=== PATIENT | male | born 1995 | race Caucasian/White ===

== ENCOUNTER 2019-10-02 15:37 | Emergency (ER) | payer BC ==
[2019-10-02] MEDS ORDERED: Amoxicillin/Potassium Clav 875 MG TAB ONE (15:58)
[2019-10-02] MEDS ORDERED: Lidocaine 2% w/ Epi 1:200K 10 ML VIAL ONE (15:58)
[2019-10-02] MEDS ORDERED: Adacel (T-DAP) 0.5 ML SYRINGE ONE (15:58)
[2019-10-02] MEDS ORDERED: Bacitracin 1 PK ONE (17:15)
--- NOTE | 2019-10-03 07:50 | RAD ---
RIGHT FOOT 3 VIEWS: Date: 10/02/2019 On the oblique view only, there was a faint linear density seen between the proximal first and second metatarsals. There is a possibility that this is an opaque foreign body in the soft tissues. I do no t see it with assurance on the lateral view of the foot. Some bony spurring is suggested in some of t he tarsometatarsal joints, perhaps from a prior injury. No fractures seen. IMPRESSION: Equivocal foreign body on one view only. Correlate this location with the site of laceration. CODE T. POS: HOME
== END 2019-10-02 17:15 | disposition home or self-care (01) ==
LOC: BURERS 15:37
DX: S91.311A Laceration without foreign body, right foot, initial encounter (principal); F17.210 Nicotine dependence, cigarettes, uncomplicated; Z23 Encounter for immunization; W26.8XXA Contact with other sharp object(s), not elsewhere classified, initial encounter
CPT/HCPCS: 12032; 90715

== ENCOUNTER 2019-10-21 18:22 | Emergency (ER) | payer BC ==
[2019-10-21] MEDS ORDERED: Bacitracin 1 PK ONE (19:00)
[2019-10-21] MEDS ORDERED: Clindamycin 150 MG CAP ONE (19:01)
== END 2019-10-21 19:10 | disposition home or self-care (01) ==
LOC: BURERS 18:22
DX: T81.33XA Disruption of traumatic injury wound repair, initial encounter (principal); S91.311D Laceration without foreign body, right foot, subsequent encounter; F17.210 Nicotine dependence, cigarettes, uncomplicated
CPT/HCPCS: 99283